=== PATIENT | female | born 1955 | race Caucasian/White ===

== ENCOUNTER → 2018-11-17 09:54 | Outpatient (CLI) | payer OTHER, SELFPAY ==
[2018-11-17 11:02] LABS: Alanine Aminotransferase 31 IU/L (9-52); Albumin 4.4 g/dL (3.5-5.0); Albumin Globulin Ratio 1.7 (1.0-2.8); Alkaline Phosphatase 72 U/L (38-126); Aspartate Aminotransferase 31 IU/L (14-36); BUN Creatinine Ratio 18.9 (6-22); Bilirubin Total 0.4 mg/dL (0.2-1.3); Blood Urea Nitrogen 17 mg/dL (7-17); Calcium 9.5 mg/dL (8.4-10.2); Carbon Dioxide 28 mmol/L (22-32); Chloride 104 mmol/L (98-107); Cholesterol 200 mg/dL (140-199); Estimated Glomerular Filt Rate > 60.0 mL/min (>60); Globulin 2.6 g/dL (1.7-4.1); Glucose 89 mg/dL (80-110); HDL Cholesterol 76 mg/dL (40-60); HEMOLYSIS < 15 (0-50); LDL Cholesterol Calculated 115 mg/dL (<100); Potassium 4.4 mmol/L (3.4-5.1); Sodium 145 mmol/L (137-145); Triglycerides 45 mg/dL (35-150)
== END ==
PROVIDERS: Visit Provider Specialist
DX: Z00.00 Encounter for general adult medical examination without abnormal findings (principal); Z13.220 Encounter for screening for lipoid disorders
CPT/HCPCS: 36415; 80053; 80061

== ENCOUNTER → 2019-09-23 10:48 | Outpatient (CLI) | payer OTHER, SELFPAY ==
[2019-09-23 12:21] LABS: Add Manual Diff / Slide Review NO; Basophils Absolute Auto 100 /uL (0-100); Basophils Percent Auto 1.1 % (0-2); Eosinophils Absolute Auto 200 /uL (0-450); Eosinophils Percent Auto 3.4 % (2-4); Hematocrit 39.8 % (36-46); Hemoglobin 13.7 g/dL (12.0-16.0); Lymphocytes Absolute Auto 1200 /uL (1100-4500); Lymphocytes Percent Auto 23.5 % (25-40); Mean Corpuscular HGB Conc 34.4 % (30-36); Mean Corpuscular Hemoglobin 29.4 PG (26-34); Mean Corpuscular Volume 85.4 fL (80-100); Monocytes Absolute Auto 400 /uL (0-900); Monocytes Percent Auto 8.4 % (3-14); Neutrophils Absolute Auto 3300 /uL (1500-7000); Neutrophils Percent Auto 63.6 % (50-75); Platelet Count 267 X10^3/uL (150-400); Red Blood Cell Count 4.66 X10^6/uL (4.0-5.2); White Blood Cell Count 5.2 X10^3/uL (4.5-11.0)
[2019-09-23 12:35] LABS: BUN Creatinine Ratio 13.8 (6-22); Blood Urea Nitrogen 11 mg/dL (7-17); Calcium 9.4 mg/dL (8.4-10.2); Carbon Dioxide 26 mmol/L (22-32); Chloride 104 mmol/L (98-107); Cholesterol 215 mg/dL (140-199); Estimated Glomerular Filt Rate > 60.0 mL/min (>60); Glucose 87 mg/dL (80-110); HDL Cholesterol 69 mg/dL (40-60); HEMOLYSIS < 15 (0-50); LDL Cholesterol Calculated 134 mg/dL (<100); Potassium 4.1 mmol/L (3.4-5.1); Sodium 140 mmol/L (137-145); Triglycerides 60 mg/dL (35-150)
[2019-09-23 12:46] LABS: LDL Cholesterol Direct 106 mg/dL (<100)
[2019-09-23 13:02] LABS: Rubella Antibody IgG 84.3 IU/mL (>15)
[2019-09-23 13:23] LABS: Hep C Virus Ab w/Reflex Quant NEGATIVE s/c (NEGATIVE)
[2019-09-26 15:06] LABS: Hepatitis A Antibody Total Nonreactive (Nonreactive)
[2019-09-27 16:41] LABS: Rubeola Measles IgG > 300.00 AU/mL (< 25.00)
[2019-09-27 16:43] LABS: Mumps Virus IgG Antibody > 300.00 AU/mL (< 9.00)
== END ==
DX: Z13.29 Encounter for screening for other suspected endocrine disorder (principal); Z13.228 Encounter for screening for other metabolic disorders; Z13.0 Encounter for screening for diseases of the blood and blood-forming organs and certain disorders involving the immune mechanism; Z13.220 Encounter for screening for lipoid disorders
CPT/HCPCS: 36415; 80048; 80061; 83721; 84443; 85025; 86708; 86735; 86762; 86765; 86803; 87522

== ENCOUNTER → 2024-10-26 13:20 | Outpatient (CLI) | payer MEDICARE, SELFPAY ==
--- NOTE | 2024-10-26 13:26 | DI.RAD.S_ITS ---
PROCEDURE: XR FOOT LT MIN 3V INDICATIONS: FOOT PAIN TECHNIQUE: 3 views of the foot were acquired. COMPARISON: [facility], CR, XR FOOT RT MIN 3V, 10/26/2024, 13:43. FINDINGS: Bones: No fractures or dislocations. No suspicious bony lesions. Mild hallux valgus angulation of the left great toe with moderate degenerative changes of the 1st metatarsophalangeal joint. Prominent marginal osteophytes and joint space loss. Medial soft tissue prominence of the 1st metatarsophalangeal joint. Soft tissues: No tibiotalar joint effusion. Achilles tendon appears normal. 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 Dictated by: Demarcus Patel M.D. on 10/27/2024 at 2:29 Approved by: Demarcus Patel M.D. on 10/27/2024 at 2:30
--- NOTE | 2024-10-26 13:26 | DI.RAD.S_ITS ---
PROCEDURE: XR FOOT RT MIN 3V INDICATIONS: FOOT PAIN TECHNIQUE: 3 views of the foot were acquired. COMPARISON: None. FINDINGS: Bones: No acute fractures or dislocations. Moderate hallux valgus angulation of the right great toe with associated 1st metatarsophalangeal joint degenerative changes and medial soft tissue prominence. No suspicious bony lesions. Soft tissues: No tibiotalar joint effusion. Achilles tendon appears normal. IMPRESSION: Moderate hallux valgus angulation of the right great toe with associated 1st metatarsophalangeal joint degenerative change and bunion formation. No acute osseous abnormality seen. Dictated by: Demarcus Patel M.D. on 10/27/2024 at 2:27 Approved by: Demarcus Patel M.D. on 10/27/2024 at 2:29
== END ==
PROVIDERS: Referring Provider Podiatrist Foot & Ankle Surgery; Visit Provider Podiatrist Foot & Ankle Surgery
DX: M20.12 Hallux valgus (acquired), left foot (principal); M20.11 Hallux valgus (acquired), right foot; M21.612 Bunion of left foot; M21.611 Bunion of right foot; M79.671 Pain in right foot; M79.672 Pain in left foot
CPT/HCPCS: 73630

== ENCOUNTER → 2024-10-27 12:00 | Outpatient (CLI) | payer MEDICARE, SELFPAY ==
--- NOTE | 2024-10-27 12:02 | DI.US.S_ITS ---
PROCEDURE: US EXTREMITY NONVASC LOWER LT INDICATIONS: GANGLION CYST VS SEROMA VS OTHER ETIOLOGY TECHNIQUE: Real-time scanning was performed of the left dorsal ankle , with image documentation. COMPARISON: [facility], , XR FOOT LT MIN 3V, 10/26/2024, 13:43. [facility], , US EXTREMITY NONVASC LOWER RT, 10/27/2024, 12:25. FINDINGS: At the area of concern, there is a 0.5 x 2.0 x 0.5 cm heterogenous collection with internal debris, but without internal vascularity present superficial to the proximal dorsalis pedis artery. The collection is interposed with the overlying extensor tendons. IMPRESSION: Likely heterogenous fluid within the Gruberi bursa. Dictated by: Dieter Damian M.D. on 10/27/2024 at 16:56 Approved by: Dieter Damian M.D. on 10/27/2024 at 17:00
--- NOTE | 2024-10-27 12:02 | DI.US.S_ITS ---
PROCEDURE: US EXTREMITY NONVASC LOWER RT INDICATIONS: GANGLION CYST VS SEROMA VS OTHER ETIOLOGY TECHNIQUE: Real-time scanning was performed of the right dorsal ankle with image documentation. COMPARISON: None. FINDINGS: At the area of concern, there is a 0.6 x 0.7 x 0.3 cm simple fluid collection that is contiguous with the overlying extensor tendons. There is no significant internal vascularity. IMPRESSION: Simple fluid likely within the Gruberi bursa. Dictated by: Dieter Damian M.D. on 10/27/2024 at 17:00 Approved by: Dieter Damian M.D. on 10/27/2024 at 17:01
== END ==
PROVIDERS: Referring Provider Podiatrist Foot & Ankle Surgery; Visit Provider Podiatrist Foot & Ankle Surgery
DX: M79.671 Pain in right foot (principal); M79.672 Pain in left foot
CPT/HCPCS: 76882